=== PATIENT | female | born 1980 | race Caucasian/White ===

== ENCOUNTER → 2018-12-27 13:18 | Outpatient (CLI) | payer OTHER, SELFPAY ==
[2019-01-01 12:01] LABS: HPV Reflexed? NOT INDICATED
== END ==
PROVIDERS: Family Provider Family Medicine; PCP Family Medicine; Visit Provider Family Medicine
DX: Z12.4 Encounter for screening for malignant neoplasm of cervix (principal)
CPT/HCPCS: 88175; G0145